=== PATIENT | female | born 1960 | race African-American/Black ===

== ENCOUNTER 2019-01-08 20:23 | Emergency (ER) | payer SELFPAY ==
[2019-01-08] MEDS ORDERED: Meclizine HCl 25 MG TAB ONE (22:18)
[2019-01-08 22:22] LABS: #Basophils 0.1 thou/uL (0.0-0.2); #Eosinphils 0.1 thou/uL (0.0-0.7); #Lymphocytes 2.3 thou/uL (1.20-3.40); #Monocytes 0.5 thou/uL (0.11-0.59); #Neutrophils 4.3 thou/uL (1.40-6.50); %Basophils 1.6 % (0.0-1.0); %Eosinophils 1.5 % (0.0-10.0); %Lymphocytes 31.7 % (21.0-51.0); %Monocytes 7.1 % (0.0-10.0); %Neutrophils 58.1 % (42.0-75.0); Hemoglobin 13.1 g/dL (12.0-16.0); Mean Corpuscular HGB CONC 33.5 g/dL (32.0-36.0); Mean Corpuscular Hemoglobin 30.3 pg (27.0-31.0); Mean Corpuscular Volume 90.5 fL (78.0-98.0); Mean Platelet Volume 9.6 fL (7.4-10.4); Platelet Count 239 thou/uL (130-400); RBC Distribution Width 12.8 % (11.5-14.5); Red Blood Cell (RBC) Count 4.33 mill/uL (4.20-5.40); White Blood Cell (WBC) Count 7.4 thou/uL (4.8-10.8)
[2019-01-08 22:49] LABS: ALT (SGPT) 37 U/L (8-55); AST (SGOT) 41 U/L (5-34); Albumin 4.3 g/dL (3.5-5.0); Alkaline Phosphatase 156 U/L (40-150); Anion Gap 16 mmol/L (10-20); BUN (Urea Nitrogen) 12 mg/dL (9.8-20.1); Bilirubin, Total 0.3 mg/dL (0.2-1.2); Calc. Creatinine Clearance 0 mL/min (70-130); Calcium 9.8 mg/dL (7.8-10.44); Carbon Dioxide 27 mmol/L (22-29); Chloride 100 mmol/L (98-107); Estimated GFR-MDRD 81; Globulin 4.1 g/dL (2.4-3.5); Glucose 107 mg/dL (70-105); Potassium 4.1 mmol/L (3.5-5.1); Protein, Total 8.4 g/dL (6.0-8.3); Sodium 139 mmol/L (136-145)
--- NOTE | 2019-01-11 12:00 | EKG ---
Test Reason : Blood Pressure : / mmHG Vent. Rate : 066 BPM Atrial Rate : 066 BPM P-R Int : 180 ms QRS Dur : 086 ms QT Int : 412 ms P-R-T Axes : 021 005 000 degrees QTc Int : 431 ms Normal sinus rhythm Normal ECG Confirmed by OMERO ARGUETA M.D. ([id number]), scientific editor MILLIE PRESLEY ([id number]) on 01/11/2019 11:59:57 AM Referred By: Confirmed By:OMERO ARGUETA M.D.
== END 2019-01-08 23:21 | disposition home or self-care (01) ==
LOC: ERS 20:23
DX: R55 Syncope and collapse (principal); F41.9 Anxiety disorder, unspecified; F32.9 Major depressive disorder, single episode, unspecified; F17.210 Nicotine dependence, cigarettes, uncomplicated; E78.5 Hyperlipidemia, unspecified; I10 Essential (primary) hypertension; Z79.899 Other long term (current) drug therapy; Z79.82 Long term (current) use of aspirin
CPT/HCPCS: 80053; 84484; 85025; 93005; 96360